=== PATIENT | male | born 1995 | race Caucasian/White ===

== ENCOUNTER 2019-03-04 10:46 | Emergency (ER) | payer OTHER ==
[~2019-03-04] VITALS: Ht 170.2 cm; Wt 68.0 kg
[~2019-03-04 10:46] MED LIST: ACETAMINOPHEN-1 EAC1 PO; CIPRO500 M1 PO; FLAGYL500 MG PO; HYDROCODONE-AP1 EAC6 PO; IBUPROFEN 800800 M1 PO; IBUPROFEN 800800 MG PO; NOHOMEMEDICATIONS; PENICILLIN V P500 MG PO; ROBAXIN500 MG PO; SEROQUEL XR200 MG PO; VICODIN 5-5001 EACH PO; ZOFRAN ODT4 MG PO
[2019-03-04 10:54] VITALS: BP 117/79
[2019-03-04] MEDS ORDERED: NORCO 5-325 TA1 EAC1 PO (11:05)
== END 2019-03-04 11:24 | disposition home or self-care (01) ==
LOC: M.ERS 10:46
DX: T23.231A Burn of second degree of multiple right fingers (nail), not including thumb, initial encounter (principal); T31.0 Burns involving less than 10% of body surface; X19.XXXA Contact with other heat and hot substances, initial encounter; Y93.89 Activity, other specified; Y92.69 Other specified industrial and construction area as the place of occurrence of the external cause; Y99.8 Other external cause status

== ENCOUNTER 2020-03-14 07:42 | Emergency (ER) | payer OTHER ==
[~2020-03-14] VITALS: Ht 170.2 cm; Wt 61.2 kg
[~2020-03-14 07:42] MED LIST changes: +NORCO 5-325 TA1 EAC1 PO
[2020-03-14 09:11] VITALS: BP 142/75
== END 2020-03-14 09:12 | disposition home or self-care (01) ==
LOC: M.ERS 07:42
DX: F41.0 Panic disorder [episodic paroxysmal anxiety] (principal); F14.10 Cocaine abuse, uncomplicated; F84.0 Autistic disorder

== ENCOUNTER 2020-04-18 20:35 | Emergency (ER) | payer OTHER ==
[~2020-04-18] VITALS: Ht 170.2 cm; Wt 61.2 kg
[2020-04-18 22:18] VITALS: BP 112/60
== END 2020-04-18 22:18 | disposition home or self-care (01) ==
LOC: M.ERS 20:35
DX: J02.9 Acute pharyngitis, unspecified (principal); F17.210 Nicotine dependence, cigarettes, uncomplicated